=== PATIENT | female | born 1970 ===

== ENCOUNTER 2019-02-21 10:51 | Outpatient (REF) | payer BC, SELFPAY ==
[2019-02-21 19:32] LABS: HCT 40.6 % (36.0-46.0); HGB 14.3 g/dL (12.0-15.5); Mean Corp. HGB Concentration 35.2 g/dL (32.0-36.0); Mean Corpuscular Hemoglobin 34.6 pg (27.0-33.0); Mean Corpuscular Volume 98.3 fL (80-95); Mean Platelet Volume 10.9 fL (8.0-11.0); Platelet Count 220 x1000/uL (130-400); RBC 4.13 m/cumm (4.00-5.20); RBC Distribution Width 13.3 % (11.7-14.6); White Blood Cell Count 11.06 k/cumm (4.4-10.8)
[2019-02-21 20:16] LABS: ALT 21 U/L (12-78); AST 15 U/L (15-37); Albumin 3.9 g/dL (3.4-5.0); Alkaline Phosphatase 110 U/L (46-116); Anion Gap 10.2 mmol/L (3-11); BUN 17 mg/dL (7-18); Bilirubin, Total 0.3 mg/dL (0.2-1.0); CO2 26.8 mmol/L (21.0-32.0); CREATININE 0.83 mg/dL (0.55-1.02); Calcium 8.8 mg/dL (8.5-10.1); Calculated LDL 135; Chloride 104 mmol/L (98-107); Cholesterol 194 mg/dL (50-200); Ferritin 100 ng/mL (8-388); Glucose 87 mg/dL (70-100); HDL Cholesterol 51 mg/dL (40-60); Potassium 4.1 mmol/L (3.5-5.1); Sodium 141 mmol/L (136-145); TSH 0.74 uIU/mL (0.358-3.74); Total Protein 7.1 g/dL (6.4-8.2); Triglyceride 44 mg/dL (30-150)
[2019-02-21 20:34] LABS: Iron 75 ug/dL (50-175)
== END 2019-02-21 11:11 ==
LOC: NCHCN 10:51
PROVIDERS: PCP Nurse Practitioner Family; Visit Provider Nurse Practitioner Family
DX: R53.83 Other fatigue (principal); M25.50 Pain in unspecified joint; Z13.220 Encounter for screening for lipoid disorders
CPT/HCPCS: 80053; 80061; 83721; 85027; 82728; 83540; 84443